=== PATIENT | female | born 1990 | race Two or more races ===

== ENCOUNTER 2023-10-25 13:29 | Emergency (ER) | payer OTHER ==
[2023-10-25 13:49] VITALS: BP 117/84; PULSE 110; RESP 18; TEMP 99.1; BMI 29.1
[2023-10-25] MEDS ORDERED: ACETAMINOPHEN 500 MG TABLET (FP) ONE (14:03)
[2023-10-25] MEDS ORDERED: ALBUTEROL SO4 2.5/IPRATROPIUM 0.5 INH SOL 3 ML VIAL.NEB. NEB ONE (14:03)
[2023-10-25] MEDS: ACETAMINOPHEN 500 MG TABLET (FP) PO ONE (14:13)
[2023-10-25] MEDS: ALBUTEROL SO4 2.5/IPRATROPIUM 0.5 INH SOL 3 ML VIAL.NEB. NEB ONE (14:14)
[2023-10-25] MEDS: SODIUM CHLORIDE FOR INHALATION 3 ML VIAL.NEB IH ONE (14:59)
== END 2023-10-25 15:30 | disposition home or self-care (01) ==
LOC: JERFT 13:29 → JER 13:29 → JERFT 15:30
PROC: 3E0F7GC Introduction of Other Therapeutic Substance into Respiratory Tract, Via Natural or Artificial Opening (ICD-10-PCS; principal; 2023-10-25)
DX: R05.9 Cough, unspecified (principal); J06.9 Acute upper respiratory infection, unspecified; R09.81 Nasal congestion; R50.9 Fever, unspecified; R51.9 Headache, unspecified; R07.0 Pain in throat; Z20.822 Contact with and (suspected) exposure to COVID-19
CPT/HCPCS: 0241U-QW; 71046-TC-FY; 99284-25

== ENCOUNTER 2023-10-27 14:04 | Emergency (ER) | payer OTHER ==
[2023-10-27 14:17] VITALS: BP 110/77; PULSE 90; RESP 20; TEMP 97.6; BMI 28.9
[2023-10-27] MEDS ORDERED: ACETAMINOPHEN INJECTION 100 ML IVPB ONE (16:11)
[2023-10-27] MEDS: SODIUM CHLORIDE 0.9% 500 ML INFUS.BAG IV ONE (16:30)
[2023-10-27] MEDS: ACETAMINOPHEN 1000 MG/100 ML BAG IVPB ONE (16:30)
[2023-10-27 16:31] LABS: THROAT:GRP A STREP NOT DETECTED (NOTDETECTED)
[2023-10-27 16:59] LABS: EPI CELLS >36 /uL (0-25.1); HYALINE CASTS 0 /uL (0-3.1); PH,URINE 5.5 (5.0-8.0); URINE APPEARANCE CLEAR; URINE BACTERIA 300 /uL (0-1359); URINE BILIRUBIN NEGATIVE (NEGATIVE); URINE COLOR YELLOW; URINE GLUCOSE (UA) NEGATIVE (NEGATIVE); URINE KETONE NEGATIVE (NEGATIVE); URINE LEUK ESTERASE 1+ (NEGATIVE); URINE NITRITE NEGATIVE (NEGATIVE); URINE PROTEIN NEGATIVE (NEGATIVE); URINE RBC 8 /uL (0-23.9); URINE UROBILINOGEN 0.2 mg/dL (0.2-1.0); URINE WBC 80 /uL (0-25.8)
[2023-10-27 17:01] LABS: BASO % 0.4 % (0-2.0); EOS % 2.1 % (0-4.5); HEMATOCRIT 40.3 % (32.4-45.2); HEMOGLOBIN 13.7 GM/dL (10.7-15.3); MCH 32.4 pg (25.7-33.7); MCHC 34.1 g/dl (32.0-36.0); MEAN CELL VOLUME 94.8 fl (80-96); MEAN PLT VOLUME 8.5 fl (7.5-11.1); MONO % 8.4 % (3.8-10.2); NEUT % 59.1 % (42.8-82.8); PLATELET COUNT 220 10^3/uL (134-434); RBC 4.25 M/mm3 (3.60-5.2); RDW 13.3 % (11.6-15.6); WHITE BLOOD COUNT 6.5 K/mm3 (4.0-10.0)
[2023-10-27 17:03] LABS: HCG,QUALITATIVE URINE Negative
[2023-10-27 17:18] LABS: POTASSIUM 4.1 mmol/L (3.5-5.1)
[2023-10-27 17:23] LABS: BLOOD UREA NITROGEN 14.1 mg/dL (7-18); CALCIUM 9.9 mg/dL (8.5-10.1)
[2023-10-27 17:24] LABS: ALBUMIN 3.9 g/dl (3.4-5.0)
[2023-10-27 17:27] LABS: CREATININE 0.9 mg/dL (0.55-1.3)
[2023-10-27 17:28] LABS: BILIRUBIN,TOTAL 0.2 mg/dL (0.2-1); TOT PROT 7.8 g/dl (6.4-8.2)
[2023-10-27] MEDS ORDERED: guaiFENesin/D-METHORPHAN HB 10 ML UNIT-DOSE CUPS ONE (17:48)
[2023-10-27] MEDS ORDERED: KETOROLAC TROMETHAMINE 30 MG/1 ML VIAL ONE (17:48)
[2023-10-27] MEDS: KETOROLAC TROMETHAMINE 30 MG/1 ML VIAL IVPUSH ONE (17:52)
[2023-10-27] MEDS: guaiFENesin/D-METHORPHAN HB 10 ML UNIT-DOSE CUPS PO ONE (17:52)
== END 2023-10-27 19:21 | disposition home or self-care (01) ==
LOC: JER 14:04
DX: U07.1 COVID-19 (principal); R51.9 Headache, unspecified; R09.81 Nasal congestion; J02.9 Acute pharyngitis, unspecified; R50.9 Fever, unspecified; R42 Dizziness and giddiness; R05.9 Cough, unspecified
CPT/HCPCS: 0241U-QW; 36415; 71046-TC-FY; 80053; 81003; 84703; 85025; 87086; 87651; 99284-25; J0131